=== PATIENT | female | born 1970 | race American Indian/Alaskan Native ===

== ENCOUNTER 2020-11-11 18:43 | Emergency (ER) | payer BC, OTHER ==
[2020-11-11] MEDS ORDERED: Acetaminophen/oxyCODONE 325-5 MG Tab PO ONE (18:44)
[2020-11-11] MEDS ORDERED: Ondansetron 4 MG Tab.DIS PO ONE (18:44)
[2020-11-11] MEDS ORDERED: Ketorolac 10 MG Tab PO ONE (18:44)
[2020-11-11] MEDS ORDERED: Tamsulosin 0.4 MG Cap.ER PO ONE (18:44)
[2020-11-11] MEDS: Sodium Chloride 0.9% 1,000 ML IV ONE (19:35)
[2020-11-11] MEDS: Ondansetron 4 MG/2 ML SDV IV ONE (19:43)
[2020-11-11] MEDS: Morphine 2 MG/ML SYRINGE IVPUSH ONE (19:46)
--- NOTE | 2020-11-11 19:52 | EDM.PDOC ---
ED HPI GENERAL MEDICAL PROBLEM - General Stated Complaint: SIDE STOMACH AND BACK PAIN Time Seen by Provider: 11/11/20 19:40 Source of Information: Reports: Patient, Family, RN, RN Notes Reviewed History Limitations: Reports: No Limitations - History of Present Illness INITIAL COMMENTS - FREE TEXT/NARRATIVE: Patient is a 50-year-old female who presents to ER with complaint of right lower quadrant pain that migrates into the groin area. Patient states she has had nausea for the last day or 2, but the pain began very suddenly. She said the pain began in the right flank area wrapping around to the right mid to lower quadrant, and down into the right groin. Patient states she has never had a kidney stone in the past. Denies any urinary symptoms i.e. frequency, urgency, burning with urination, but states she has had dark to red-colored urine recently. 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 Patient states she does still have her gallbladder and appendix. Patient states she has an IUD placed. States she felt those pains were menstrual cramps at first. Patient admits to nausea, has vomited once since being in the ER. States she feels like she needs to have diarrhea but has not had diarrhea. Denies any fever or chills. Onset: Today, Sudden Right Flank Pain Score (Numeric/FACES): 10 - Related Data Allergies Allergy/AdvReac Type Severity Reaction Status Date / Time No Known Allergies Allergy Verified 11/11/20 20:20 Home Meds: Home Meds Aspirin [Aspirin EC] 11/11/20 [History] B12 11/11/20 [History] Fish Oil 11/11/20 [History] Furosemide 20 mg PO 11/11/20 [History] Magnesium 11/11/20 [History] Vitamin D 11/11/20 [History] ED ROS GENERAL - Review of Systems Review Of Systems: Comprehensive ROS is negative, except as noted in HPI. ED EXAM, RENAL/ - Physical Exam Exam: See Below Exam Limited By: No Limitations General Appearance: Alert, WD/WN, Mild Distress Eye Exam: Bilateral Eye: EOMI, Normal Inspection Ears: Normal External Exam, Hearing Grossly Normal Nose: Normal Inspection Throat/Mouth: Normal Inspection, Normal Voice, No Airway Compromise Head: Atraumatic, Normocephalic Neck: Normal Inspection, Supple, Non-Tender, Full Range of Motion Respiratory/Chest: No Respiratory Distress, Lungs Clear, Normal Breath Sounds, No Accessory Muscle Use, Chest Non-Tender Cardiovascular: Normal Peripheral Pulses, Regular Rate, Rhythm, No Edema, No Gallop, No JVD, No Murmur, No Rub GI/Abdominal: Normal Bowel Sounds, Soft, No Organomegaly, No Distention, No Abnormal Bruit, No Mass, Pelvis Stable, Tender (RLQ, groin) (Female) Exam: Deferred Rectal (Female) Exam: Deferred Back Exam: Normal Inspection, Full Range of Motion, CVA Tenderness (R) Extremities: Normal Inspection, Normal Range of Motion, Non-Tender, Normal Capillary Refill, No Pedal Edema Neurological: Alert, Oriented, CN II-XII Intact, Normal Cognition, Normal Gait, Normal Reflexes, No Motor/Sensory Deficits Psychiatric: Normal Affect, Normal Mood Skin Exam: Warm, Dry, Intact, Normal Color, No Rash Lymphatic: No Adenopathy Course - Vital Signs Last Recorded V/S: Last Vital Signs Temp 98.6 F 11/11/20 19:05 Pulse 77 11/11/20 19:05 Resp 20 11/11/20 19:05 BP 136/87 11/11/20 19:05 Pulse Ox 98 11/11/20 19:05 - Orders/Labs/Meds Labs: Laboratory Tests 11/11/20 11/11/20 11/11/20 Range/Units 19:13 19:29 19:29 WBC 8.0 (5.0-10.0) 10^3/uL RBC 4.57 (4.2-5.4) 10^6/uL Hgb 16.4 H (12.0-16.0) g/dL Hct 47.4 H (37.0-47.0) % MCV 103.7 H (80-100) fL MCH 35.9 H (27.0-34.0) pg MCHC 34.6 (33.0-35.0) g/dL Plt Count 294 (150-450) 10^3/uL Neut % (Auto) 53.4 (42.2-75.2) % Lymph % (Auto) 32.8 (20.5-50.1) % [place] % (Auto) 7.2 (2-8) % Eos % (Auto) 6.3 H (1.0-3.0) % Baso % (Auto) 0.3 (0.0-1.0) % Sodium 140 (136-145) mmol/L Potassium 4.8 (3.5-5.1) mmol/L Chloride 104 (98-107) mmol/L Carbon Dioxide 25 (21-32) mmol/L Anion Gap 15.8 H (7-13) mEq/L BUN 18 (7-18) mg/dL Creatinine 1.14 H (0.55-1.02) mg/dL Est Cr Clr Drug Dosing TNP Estimated GFR (MDRD) 50 BUN/Creatinine Ratio 15.8 (No establ ref range) Glucose 105 H (70-99) mg/dL Calcium 9.0 (8.5-10.1) mg/dL Total Bilirubin 0.3 (0.2-1.0) mg/dL AST 17 (15-37) U/L ALT 24 (14-59) U/L Alkaline Phosphatase 91 (46-116) U/L Total Protein 7.4 (6.4-8.2) g/dL Albumin 3.7 (3.4-5.0) g/dL Globulin 3.7 Albumin/Globulin Ratio 1.0 Urine Color Yellow (YELLOW) Urine Appearance Slightly cloudy (CLEAR) Urine pH 6.0 (5.0-9.0) Ur Specific Rush 1.025 (1.005-1.030) Urine Protein Negative (NEGATIVE) Urine Glucose (UA) Negative (NEGATIVE) Urine Ketones Negative (NEGATIVE) Urine Occult Blood Large H (NEGATIVE) Urine Nitrite Negative (NEGATIVE) Urine Bilirubin Negative (NEGATIVE) Urine Urobilinogen 0.2 (0.2-1.0) mg/dL Ur Leukocyte Esterase Negative (NEGATIVE) Urine RBC Packed H /HPF Urine WBC 0-5 (0-5/HPF) /HPF Ur Epithelial Cells Few (NOT SEEN) /HPF Urine Bacteria Few (0-FEW/HPF) /HPF Meds: Medications Discontinued Medications Generic Name Dose Route Start Last Admin Trade Name Freq PRN Reason Stop Dose Admin Sodium Chloride 1,000 mls @ 999 mls/hr 11/11/20 19:38 11/11/20 19:35 Normal Saline IV 11/11/20 20:38 999 mls/hr .BOLUS ONE Administration Ketorolac Tromethamine 30 mg 11/11/20 21:10 11/11/20 21:20 Ketorolac 30 Mg/Ml Sdv IVPUSH 11/11/20 21:11 30 mg ONETIME ONE Administration Morphine Sulfate 2 mg 11/11/20 19:38 11/11/20 19:46 Morphine 2 Mg/Ml Syringe IVPUSH 11/11/20 19:39 2 mg ONETIME ONE Administration Ondansetron HCl 4 mg 11/11/20 19:38 11/11/20 19:43 Ondansetron 4 Mg/2 Ml Sdv IV 11/11/20 19:39 4 mg ONETIME ONE Administration Tamsulosin HCl 0.4 mg 11/11/20 21:20 11/11/20 21:29 Tamsulosin 0.4 Mg Cap.Er PO 11/11/20 21:21 0.4 mg ONETIME ONE Administration - Radiology Interpretation Free Text/Narrative:: Abdomen/Pelvis CT wo contrast: PROCEDURE INFORMATION: Exam: CT Abdomen And Pelvis Without Contrast Exam date and time: 11/11/2020 8:15 PM Age: 50 years old Clinical indication: Other: Right sided pain; Additional info: Right kidney stone? ? TECHNIQUE: Imaging protocol: Computed tomography of the abdomen and pelvis without co ntrast. Radiation optimization: All CT scans at this facility use at least one of these dose optimization techniques: automated exposure control; mA and/or kV adjustment per patient size (includes targeted exams where dose is matched to clinical indication); or iterative reconstruction. COMPARISON: No relevant prior studies available. FINDINGS: Liver: Diffuse fatty infiltration of the liver. Gallbladder and bile ducts: Normal. No calcified stones. No ductal dilation. Pancreas: Normal. No ductal dilation. Spleen: Normal. No splenomegaly. Adrenal glands: Normal. No mass. Kidneys and ureters: 2 mm x 4 mm stone at the right ureterovesicular junction causing moderate right hydronephrosis and perinephric stranding. 2 mm stone in an interpolar calyx of the right kidney. Stomach and bowel: Multiple colonic diverticula without evidence for diverticulitis. Appendix: No evidence of appendicitis. Intraperitoneal space: Unremarkable. No free air. No significant fluid collection. Vasculature: Unremarkable. No abdominal aortic aneurysm. Lymph nodes: Unremarkable. No enlarged lymph nodes. Urinary bladder: Unremarkable as visualized. Reproductive: Malpositioned IUD. The stem of the IUD appears to extend into the anterior uterine myometrium. Bones/joints: Unremarkable. No acute fracture. Soft tissues: Unremarkable. IMPRESSION: 1. 2 mm x 4 mm obstructing stone at the right ureterovesicular junction. 2. Malpositioned IUD. 3. Fatty infiltration of the liver. Thank you for allowing us to participate in the care of your patient. Dictated and Authenticated by: Ritu Ortiz MD 11/11/2020 9:03 PM Central Time ([place] & [place]) See rad report - Re-Assessments/Exams Free Text/Narrative Re-Assessment/Exam: 11/11/20 21:18 Discussed patient case with Dr. Mclaughlin at [facility]. He states since there is no leukocytosis, no kidney failure, patient is probably soon to pass the stone. He suggests Toradol, Flomax, Percocet, heating pad, rest. If the patient does develop any fever or chills she is to return to the ER. Otherwise to follow-up with urology in 1 week. Departure - Departure Time of Disposition: 21:38 Disposition: Home, Self-Care 01 Condition: Fair Clinical Impression: Kidney stone - Discharge Information *PRESCRIPTION DRUG MONITORING PROGRAM REVIEWED*: No *COPY OF PRESCRIPTION DRUG MONITORING REPORT IN PATIENT [place]: No Instructions: Kidney Stones, [id number] Forms: ED Department Discharge Additional Instructions: Return to the ER with any worsening of symptoms, fever, chills, intractable pain Rx: Toradol 10mg orally every 6 hours as needed for pain (no more than 4/day) (sent home 4, no script) Rx: Flomax 0.4mg orally once daily after same meal (sent home 1, script for #5) Rx: Percocet 5/325mg 1-2 tablets orally every 4-6 hours as needed for severe pain (sent home 10, script for 10) RX: Odansetron 4mg ODT one orally every 6-8 hours as needed for nausea (sent home 4, script for 10) Use heating pad for comfort Rest Drink lots of water and fluids Follow up with Dr. Mclaughlin or one of his colleagues at [facility] in [place] next week Sepsis Event Note (ED) - Focused Exam Vital Signs: Vital Signs Temp Pulse Resp BP Pulse Ox 11/11/20 19:05 98.6 F 77 20 136/87 98
[2020-11-11 19:53] LABS: ANION GAP 15.8 mEq/L (7-13); CHLORIDE,CL 104 mmol/L (98-107); SODIUM,NA 140 mmol/L (136-145)
--- NOTE | 2020-11-11 21:04 | CT ---
PROCEDURE INFORMATION: Exam: CT Abdomen And Pelvis Without Contrast Exam date and time: 11/11/2020 8:15 PM Age: 50 years old Clinical indication: Other: Right sided pain; Additional info: Right kidney stone? ? TECHNIQUE: Imaging protocol: Computed tomography of the abdomen and pelvis without contrast. Radiation optimization: All CT scans at this facility use at least one of these dose optimization techniques: automated exposure control; mA and/or kV adjustment per patient size (includes targeted exams where dose is matched to clinical indication); or iterative reconstruction. COMPARISON: No relevant prior studies available. FINDINGS: Liver: Diffuse fatty infiltration of the liver. Gallbladder and bile ducts: Normal. No calcified stones. No ductal dilation. Pancreas: Normal. No ductal dilation. Spleen: Normal. No splenomegaly. Adrenal glands: Normal. No mass. Kidneys and ureters: 2 mm x 4 mm stone at the right ureterovesicular junction causing moderate right hydronephrosis and perinephric stranding. 2 mm stone in an interpolar calyx of the right kidney. Stomach and bowel: Multiple colonic diverticula without evidence for diverticulitis. Appendix: No evidence of appendicitis. Intraperitoneal space: Unremarkable. No free air. No significant fluid collection. Vasculature: Unremarkable. No abdominal aortic aneurysm. Lymph nodes: Unremarkable. No enlarged lymph nodes. Urinary bladder: Unremarkable as visualized. Reproductive: Malpositioned IUD. The stem of the IUD appears to extend into the anterior uterine myometrium. Bones/joints: Unremarkable. No acute fracture. Soft tissues: Unremarkable. IMPRESSION: 1. 2 mm x 4 mm obstructing stone at the right ureterovesicular junction. 2. Malpositioned IUD. 3. Fatty infiltration of the liver.
[2020-11-11] MEDS: Ketorolac 30 MG/ML SDV IVPUSH ONE (21:20)
[2020-11-11] MEDS: Tamsulosin 0.4 MG Cap.ER PO ONE (21:29)
[2020-11-11] MEDS: Ketorolac 10 MG Tab ONE (22:10)
[2020-11-11] MEDS: Acetaminophen/oxyCODONE 325-5 MG Tab ONE (22:10)
[2020-11-11] MEDS: Ondansetron 4 MG Tab.DIS ONE (22:10)
[2020-11-11] MEDS: Tamsulosin 0.4 MG Cap.ER ONE (22:10)
== END 2020-11-11 22:11 | disposition home or self-care (01) ==
LOC: DL.ED 18:43
DX: N13.2 Hydronephrosis with renal and ureteral calculous obstruction (principal); Z79.82 Long term (current) use of aspirin
CPT/HCPCS: 36415; 74176; 80053; 81001; 85025; 96374; 96375; 99284; A9270; J1885; J2270; J2405; J7030